=== PATIENT | male | born 1950 | race Caucasian/White ===

== ENCOUNTER 2020-08-20 19:39 | Emergency (ER) | payer MEDICARE, BC ==
[~2020-08-20] VITALS: Ht 180.3 cm; Wt 97.5 kg
[~2020-08-20 19:39] MED LIST: NOHOMEMEDICATIONS
[2020-08-20 20:39] VITALS: BP 143/61
== END 2020-08-20 20:39 | disposition home or self-care (01) ==
LOC: M.ERS 19:39
DX: T23.201A Burn of second degree of right hand, unspecified site, initial encounter (principal); T31.0 Burns involving less than 10% of body surface; X08.8XXA Exposure to other specified smoke, fire and flames, initial encounter; Y93.89 Activity, other specified; Y92.89 Other specified places as the place of occurrence of the external cause; Y99.8 Other external cause status